=== PATIENT | female | born 1975 | race Caucasian/White ===

== ENCOUNTER 2022-06-23 22:49 | Emergency (ER) | payer BC ==
[2022-06-23 23:06] VITALS: BP 115/76; PULSE 96; RESP 18; TEMP 98.7; BMI 29.2
[2022-06-24] MEDS ORDERED: AZITHROMYCIN 250 MG TABLET PO ONE (01:00)
[2022-06-24] MEDS ORDERED: DEXAMETHASONE 4 MG TABLET (FP) PO ONE (01:01)
[2022-06-24] MEDS ORDERED: DEXAMETHASONE SOD PHOSPHATE 10 MG/1 ML VIAL ONE (01:04)
[2022-06-24] MEDS ORDERED: AZITHROMYCIN 250 MG TABLET ONE (01:04)
== END 2022-06-24 01:54 | disposition home or self-care (01) ==
LOC: JER 22:49
DX: U07.1 COVID-19 (principal)
CPT/HCPCS: 71046-TC-FY; 99283-25

== ENCOUNTER 2023-12-10 11:06 | Emergency (ER) | payer BC ==
[2023-12-10 11:24] VITALS: BP 122/72; PULSE 107; RESP 18; TEMP 99; BMI 29.2
[2023-12-10] MEDS: ACETAMINOPHEN 325 MG TABLET (FP) PO ONE (12:32)
[2023-12-10] MEDS ORDERED: ACETAMINOPHEN 500 MG TABLET (FP) ONE (12:33)
[2023-12-10 13:15] LABS: THROAT:GRP A STREP NOT DETECTED (NOTDETECTED)
[2023-12-10] MEDS ORDERED: NAPROXEN 500 MG TABLET ONE (13:41)
[2023-12-10] MEDS: NAPROXEN 500 MG TABLET PO ONE (13:41)
== END 2023-12-10 13:42 | disposition home or self-care (01) ==
LOC: JERFT 11:06
DX: J02.9 Acute pharyngitis, unspecified (principal); B34.9 Viral infection, unspecified; R52 Pain, unspecified; R50.9 Fever, unspecified; R11.10 Vomiting, unspecified; Z20.822 Contact with and (suspected) exposure to COVID-19
CPT/HCPCS: 0241U-QW; 87651; 99283-25